=== PATIENT | female | born 1975 | race American Indian/Alaskan Native ===

== ENCOUNTER 2016-10-27 14:00 | Emergency (ER) | payer BC ==
[2016-10-27 15:01] LABS: Basophils % (Auto) 0.2 % (0.0-1.8); Eosinophils % (Auto) 1.4 % (0.0-4.3); Hematocrit 43.6 % (30.3-42.9); Hemoglobin 14.1 gm/dl (10.1-14.3); Mean Corpuscular HGB Conc 32 % (30-34); Mean Corpuscular Hemoglobin 27 pg (28-32); Mean Corpuscular Volume 84 fl (79-97); Platelet Count 496 K/mm3 (140-440); Red Blood Count 5.22 M/mm3 (3.65-5.03); Red Cell Distribution Width 17.3 % (13.2-15.2); White Blood Count 8.5 K/mm3 (4.5-11.0)
[2016-10-27 15:23] LABS: Anion Gap 17 mmol/L; BUN/Creatinine Ratio 18.75; Blood Urea Nitrogen 15 mg/dL (7-17); Calcium 9.2 mg/dL (8.4-10.2); Carbon Dioxide 30 mmol/L (22-30); Chloride 96.8 mmol/L (98-107); Glucose 118 mg/dL (65-100); Potassium 3.1 mmol/L (3.6-5.0); Sodium 141 mmol/L (137-145)
[2016-10-27] MEDS ORDERED: NACL 0.9% 1000 ML 1,000 ML IV ONE (16:28)
[2016-10-27] MEDS ORDERED: ZOFRAN IV ONE (16:30)
--- NOTE | 2016-10-27 16:57 | Emergency Department Report ---
Vomiting/Diarrhea - [facility] Chief Complaint: Nausea/Vomiting/Diarrhea Stated Complaint: NAUSEA/VOMITING/VERTIGO Time Seen by Provider: 10/27/16 15:53 ED Review of Systems ROS: Stated complaint: NAUSEA/VOMITING/VERTIGO Other details as noted in HPI ED Past Medical Hx - Past Medical History Previous Medical History?: Yes Hx Psychiatric Treatment: Yes (Anxiety) Additional medical history: URI, Autoimmune disease - Surgical History Past Surgical History?: No - Social History Smoking Status: Never Smoker Substance Use Type: Prescribed - Medications Home Medications: Home Medications Medication Instructions Recorded Confirmed Last Taken Type Duloxetine HCl [Cymbalta] 30 mg PO HS 10/27/16 10/27/16 10/26/16 History Folic Acid [Folvite] 1 mg PO QDAY 10/27/16 10/27/16 10/26/16 History HCTZ 25 mg PO DAILY 10/27/16 10/27/16 10/26/16 History Hydroxychloroquine [Plaquenil] 400 mg PO QDAY 10/27/16 10/27/16 10/26/16 History Levofloxacin [Levaquin TAB] 500 mg PO QDAY 10/27/16 10/27/16 10/26/16 History Methotrexate Sodium [Trexall] 2.5 mg PO QWEEK 10/27/16 10/27/16 10/25/16 History NIFEdipine XL [Procardia Xl] 90 mg PO QDAY 10/27/16 10/27/16 10/26/16 History predniSONE [Deltasone] 20 mg PO QDAY 10/27/16 10/27/16 Unknown History Vomiting Diarrhea Exam - Exam General: Vital signs noted. No distress. Alert and acting appropriately. Neurologic: Alert and oriented, no deficits. Musculoskeletal: Unremarkable. ED Course Vital Signs 10/27/16 14:30 Temperature 97.8 F Pulse Rate 91 H Respiratory 18 Rate Blood Pressure 133/91 O2 Sat by Pulse 99 Oximetry ED Medical Decision Making - Lab Data Result diagrams: 10/27/16 14:46 10/27/16 14:46 Critical care attestation.: If time is entered above; I have spent that time in minutes in the direct care of this critically ill patient, excluding procedure time. ED Disposition Condition: Stable Referrals: PRIMARY CARE, [Primary Care Provider] - 3-5 Days
[2016-10-27] MEDS ORDERED: K-DUR PO ONE (18:50)
--- NOTE | 2016-10-27 20:30 | XRay Report ---
FINAL REPORT EXAM: XR ABDOMEN 2V HISTORY: Nausea, Vomiting and Diarrhea TECHNIQUE: upright and supine views of the abdomen and pelvis PRIORS: None. FINDINGS: No pneumoperitoneum. Bowel gas pattern is nonobstructive. No pathologic calcification or fracture. IMPRESSION: No acute finding. Consider additional imaging for worsening/persistent symptoms.
[2016-10-27 20:40] LABS: Bilirubin,Urine NEG (Negative); Blood,Urine NEG (Negative); Ketones,Urine NEG (Negative); Leukocyte Esterase,Urine NEG (Negative); Mucus,Urine FEW /HPF; Nitrite,Urine NEG (Negative); Protein,Urine <15 mg/dL mg/dL (Negative); Urobilinogen,Urine < 2.0 mg/dL (<2.0)
[2016-10-27 20:53] VITALS: BP 132/88
== END 2016-10-27 21:14 | disposition home or self-care (01) ==
LOC: ED 14:00
DX: R42 Dizziness and giddiness (principal); R11.2 Nausea with vomiting, unspecified; F41.9 Anxiety disorder, unspecified
CPT/HCPCS: 36415; 74020; 80048; 81001; 81025; 85025; 96361; 96374; 99284; J2405; J7030